=== PATIENT | female | born 1960 | race Caucasian/White ===

== ENCOUNTER 2023-01-06 09:13 | Day surgery (SDC) | payer OTHER, SELFPAY ==
[2023-01-06] MEDS: LACTATED RINGERS 1000 ML 1,000 ML 100 ML IV ×2 (09:20→15:03)
[2023-01-06 09:33] VITALS: BMI 31.8
[2023-01-06 09:40] VITALS: BP 132/60; PULSE 67; RESP 16; TEMP 36.7; O2SAT 94
[2023-01-06] MEDS: SODIUM CHLORIDE 0.9 % (FLUSH) 10 ML SYRINGE IVF (10:02)
--- NOTE | 2023-01-06 11:15 | CRLHL7_ITS ---
For Patients: As a result of the Cures Act, medical imaging exams and procedure reports are released immediately into your electronic medical record. You may view this report before your referring provider. If you have questions, please contact your health care provider. Indication: Hammertoe correction Technique: One fluoroscopic image of the right forefoot. Fluoroscopic time 35.2 seconds. IMPRESSION: Fluoroscopic guidance for hammertoe correction procedure and Lapidus bunionectomy. Dictated by Martinez Lyons MD @ 01/06/2023 3:53:28 PM (Electronically Signed)
[2023-01-06] MEDS: BUPIVACAINE 0.5% 30 ML INJECTION (13:00)
--- NOTE | 2023-01-06 15:29 | W.ANESCHARGE ---
Anesthesia Charges Start Date/Time Anesthesia Start Date: 01/06/23 Anesthesia Start Time: 12:48 Stop Date/Time Anesthesia Stop Date: 01/06/23 Anesthesia Stop Time: 15:42
[2023-01-06 15:42] VITALS: BP 133/88; PULSE 53; RESP 16; TEMP 36.4; O2SAT 96
[2023-01-06 15:45] VITALS: BP 131/75; PULSE 55; RESP 16; O2SAT 96
[2023-01-06 16:00] VITALS: BP 123/77; PULSE 59; RESP 16; O2SAT 96
[2023-01-06 16:15] VITALS: BP 126/88; PULSE 51; RESP 16; O2SAT 96
[2023-01-06 16:30] VITALS: BP 126/87; PULSE 51; RESP 16; O2SAT 96
--- NOTE | 2023-01-06 16:52 | SUR.PHASEII ---
Pt offered crutches/ crutch training as she did not have any at home. Pt states she would prefer walker, no walker available from Hospital to take home. Walker for purchase found at [facility] and pt said she would nut picker there.
--- NOTE | 2023-01-06 17:38 | W.ANESCHARGE ---
Anesthesia Charges Start Date/Time Anesthesia Start Date: 01/06/23 Anesthesia Start Time: 12:48 Stop Date/Time Anesthesia Stop Date: 01/06/23 Anesthesia Stop Time: 15:42
--- NOTE | 2023-01-10 14:26 | P.PCN_ITS ---
Procedure Note Date Seen: 01/06/23 Date of procedure: 01/06/23 Will [facility] bill your pro fee for this procedure?: No Pre-op diagnosis: 1. Hallux valgus bunion right 2. hammertoes digits 2, 3, 4 right Post-op diagnosis: same Procedure: 1. Lapidus bunionectomy with distal metatarsal osteotomy right 2. hammertoe repair 2nd digit right 3. hammertoe repair 3rd digit right 4. hammertoe repair 4th digit right Procedure Description: Hemostasis: ankle tourniquet to 250 mm Hg Materials: [place] Lapifuse plate x1, 3.0 mm locking screw x4, 4.0 cannulated screw x1, Fixos 4.0 mm cannulated screw x1, 0.045 smooth K-wires x4. Complications: None apparent Indication for surgery: Patient is ready to proceed with surgical correction of bunion and hammertoes. I reviewed the procedure, recovery, expectations and potential complications. These include but not limited to: Poor wound healing, infection, under correction, over correction, nonunion, delayed union, hardware irritation or failure, nerve injury, stiffness, potential need for future surgery, deep venous thrombosis, pulmonary embolism and possible . She understands risks written consent was obtained. Site was marked. Procedure in detail: Patient was brought the operating room placed supine position on operating table. IV sedation was initiated. 30 mL of 0.5% Marcaine plain Local anesthetic injected into the right foot. she was prepped and draped in sterile fashion. Standard time-out protocol followed. The right foot was then exsanguinated and the tourniquet inflated. Dorsomedial curvilinear incision was started over the 1st metatarsophalangeal joint and extended proximally over the metatarsal cuneiform joint. Incision was taken down through skin subcutaneous tissues. Blunt dissection exposed the joint capsule of the MPJ. T-shaped capsular incision was made the capsular tissue reflected away from the head of the 1st metatarsal. Sagittal saw was used to remove the enlarged bony prominence. Blunt dissection was then carried out in the 1st intermetatarsal space and a standard lateral release was performed. The adductor tendon, plantar lateral joint capsule and the dorsal fibular sesamoidal ligaments were released. The extensor tendon at the level of the metatarsal cuneiform joint was identified and retracted laterally. Transverse incision was made through the joint capsule of this joint. Joint manager domestic was applied and the joint distracted. Using combination of osteotome and curette cartilage and subchondral bone removed from the 1st metatarsal base and distal medial cuneiform. Using a resurfacing tool the lateral aspect of each of these bones was further remodeled getting correction of the deformity. The distractor was removed in the 1st metatarsal was rotated in 3 planes into the optimal position correcting the intermetatarsal angle. The distractor was reapplied and the wound thoroughly irrigated normal sterile saline. opposing sides of the fusion were then fenestrated with a drill and fish-scaled with an osteotome. A K-wire was placed the 1st metatarsal head. incision was made over the 2nd metatarsal neck and blunt dissection carried down to the lateral side of the metatarsal. The Lapifuse jig was then applied over the guide pin and placed from the 2nd metatarsal. First metatarsal was rotated into optimal position and locked into place with a [place]. C-arm images confirmed excellent position. Guide pin was placed across the 1st metatarsal cuneiform fusion site from plantar medial to proximal lateral. Position checked with C-arm. 4.0 cannulated screw was then inserted using standard technique and excellent compression noted across the fusion site. dorsal medial 5 hole plate was then applied with 2 locking screws distal and 2 locking screws proximal. C-arm confirmed excellent position. Evaluation of the 1st metatarsal head showed that the articular surface was significantly angled laterally. this was too severe to leave and a derotational osteotomy was necessary. Guide pin was placed the 1st metatarsal head with a long plantar arm osteotomy made. Additional 4 mm medially based wedge was taken from the dorsal overhang. Capital fragment was rotated into position bringing the articular cartilage into more appropriate alignment. Osteotomy was fixated with a 4.0 cannulated screw from dorsal proximal to plantar distal. 0.045 smooth K-wire was inserted proximal and parallel to the screw. This was bent cut and rotated flush with the proximal bone. Wound was thoroughly irrigated normal sterile saline. C-arm confirmed excellent position. Range of motion the 1st MPJ greatly improved. Redundant joint capsule was excised and the joint capsule repaired with 3-0 Vicryl. Subcutaneous tissues reapproximated 4-0 Monocryl and skin closed with 4-0 nylon. Linear incisions made over the proximal interphalangeal joint of the 2nd toe. blunt dissection taken down to the joint capsule and extensor tendon. Transverse incision through the tendon and joint capsule was made. The medial and lateral collateral ligaments released. head of the proximal phalanx of the base of the middle phalanx were resected with a oscillating saw. Wound was irrigated with normal sterile saline. 0.045 smooth K-wire was introduced into the base of the middle phalanx driven out through the tip of the toe. Holding the fusion site tightly together K-wire was driven retrograde the into the proximal phalanx. C-arm confirmed position and length of the K-wire. Wire was bent, cut and capped. The extensor tendon was repaired with 4-0 Vicryl. Skin was closed with 4-0 Prolene. Linear incisions made over the proximal interphalangeal joint of the 3rd toe. blunt dissection taken down to the joint capsule and extensor tendon. Transverse incision through the tendon and joint capsule was made. The medial and lateral collateral ligaments released. head of the proximal phalanx of the base of the middle phalanx were resected with a oscillating saw. Wound was irrigated with normal sterile saline. 0.045 smooth K-wire was introduced into the base of the middle phalanx driven out through the tip of the toe. Holding the fusion site tightly together K-wire was driven retrograde the into the proximal phalanx. C-arm confirmed position and length of the K-wire. Wire was bent, cut and capped. The extensor tendon was repaired with 4-0 Vicryl. Skin was closed with 4-0 Prolene. Linear incisions made over the proximal interphalangeal joint of the 4th toe. blunt dissection taken down to the joint capsule and extensor tendon. Transverse incision through the tendon and joint capsule was made. The medial and lateral collateral ligaments released. head of the proximal phalanx of the base of the middle phalanx were resected with a oscillating saw. Wound was irrigated with normal sterile saline. 0.045 smooth K-wire was introduced into the base of the middle phalanx driven out through the tip of the toe. Holding the fusion site tightly together K-wire was driven retrograde the into the proximal phalanx. C-arm confirmed position and length of the K-wire. Wire was bent, cut and capped. The extensor tendon was repaired with 4-0 Vicryl. Skin was closed with 4-0 Prolene. sterile dressing was applied. Tourniquet was released and cap refill time returned normal to all digits. She is placed in a well padded Cam boot. she Was transferred from ordered PACU vital signs stable and vascular status intact. She will be discharged per Anesthesia. She is given written and verbal postop instructions. She was given oxycodone for pain. She will start aspirin therapy tomorrow. She is weight-bearing to the heel with crutch assistance for transfers. She will follow up in clinic this week. Anesthesia: MAC and local Surgeon: Roberto Genao DPM FACFAS Estimated blood loss (mL): 5 Condition: stable Disposition: same day
== END 2023-01-06 16:58 | disposition home or self-care (01) ==
PROVIDERS: PCP Family Medicine; Visit Provider Podiatrist
PROC: (CPT 28292; principal; 2023-01-06 11:15)
PROC: (CPT 28285; 2023-01-06 11:15)
DX: M20.11 Hallux valgus (acquired), right foot (principal); M21.611 Bunion of right foot; M20.41 Other hammer toe(s) (acquired), right foot
CPT/HCPCS: 28297; 28298; 28285 ×3; 01480; 73620; C1713; J0665; J1100; J2250; J2405; J2704; J3010; J7120